=== PATIENT | male | born 1970 | race Hispanic/Latino ===

== ENCOUNTER 2017-08-01 11:16 | Emergency (ER) | payer BC ==
--- NOTE | 2017-08-01 11:35 | ED PDOC ---
HPI: Abdomen Time Seen by Provider: 08/01/17 11:26 Chief Complaint (Nursing): Abdominal Pain History Per: Patient Onset/Duration Of Symptoms: Days (3) Current Symptoms Are (Timing): Still Present Severity: Mild Pain Scale Rating Of: 3 Location Of Pain/Discomfort: LUQ Quality Of Discomfort: Unable To Describe Associated Symptoms: Constipation. denies: Fever, Nausea, Vomiting Additional Complaint(s): Left sided abd pain assoc with constipation x 3 days. Passing gas. denies vomiting or fever. Past Medical History Vital Signs: Last Vital Signs Temp Pulse Resp BP Pulse Ox 98 08/01/17 13:43 - Medical History PMH: Diverticulitis - Family History Family History: States: Unknown Family Hx - Immunization History Hx Tetanus Toxoid Vaccination: (not up to date) - Home Medications Home Medications: Ambulatory Orders Medication Instructions Recorded Ibuprofen [Motrin] 600 mg PO Q6H PRN #15 tab 12/14/14 Ciprofloxacin HCl [Cipro] 500 mg PO BID #20 tab 08/01/17 Dicyclomine [Dicyclomine HCl] 10 mg PO Q8 #10 cap 08/01/17 Metronidazole [Flagyl] 500 mg PO Q8 #30 tablet 08/01/17 - Allergies Allergies/Adverse Reactions: Allergies Allergy/AdvReac Type Severity Reaction Status Date / Time No Known Allergies Allergy Verified 12/14/14 20:26 Review of Systems ROS Statement: Except As Marked, All Systems Reviewed And Found Negative Gastrointestinal: Positive for: Abdominal Pain, Constipation Physical Exam - Reviewed Nursing Documentation Reviewed: Yes Vital Signs Reviewed: Yes - Physical Exam Appears: Positive for: Non-toxic, No Acute Distress Head Exam: Positive for: ATRAUMATIC, NORMAL INSPECTION, NORMOCEPHALIC Skin: Positive for: Normal Color, Warm, DRY Gastrointestinal/Abdominal: Positive for: Bowel Sounds, Soft, Tenderness (Mild tenderness LUQ) Extremity: Positive for: Normal ROM Neurologic/Psych: Positive for: Alert, Oriented - Laboratory Results Result Diagrams: 08/01/17 11:50 08/01/17 11:50 - ECG O2 Sat by Pulse Oximetry: 98 Medical Decision Making Medical Decision Making: Time: 13:39 CT Abdomen and Pelvis with IV Contrast FINDINGS: LOWER THORAX: Small hiatal hernia. LIVER: Liver exhibits relatively normal size measuring 17.1 cm in CC dimension. The very minor diffuse fatty hepatic infiltration. Portal and splenic veins are opacified. No obvious hepatic mass or collection. GALLBLADDER AND BILE DUCTS: Gallbladder is physiologically distended. No evidence intraluminal gallbladder calculi. PANCREAS: Pancreas is slightly atrophic and fatty replaced. No obvious pancreatic mass or collection. Small nodular density located between the pancreatic tail and spleen that could represent a small spinal. SPLEEN: The spleen is unremarkable with questionable small splenule located between the pancreatic tail and medial splenic border. ADRENALS: Nodular appearance left adrenal gland KIDNEYS AND URETERS: Kidneys demonstrate symmetric nephrograms. No evidence of nephrolithiasis or hydronephrosis. BLADDER: Urine bladder is incompletely distended which presumably accounts for thick- walled appearance. Muscular hypertrophy may contribute. Cystitis in a male patient be less likely in the absence of a pertinent clinical history however clinical correlation with urinalysis REPRODUCTIVE: Prostate gland measures approximately 4.1 cm in transverse dimension. APPENDIX: The normal-appearing appendix best seen on coronal series 601, image number [id number]. Move BOWEL: Evaluation of the bowel is limited due to the lack of oral contrast material. The stomach is incompletely distended which may in part account for thick- walled appearance. The possibility of a gastritis not excluded. Visualized loops of small bowel exhibit normal contour and caliber. No evidence acute mechanical small bowel obstruction. Diverticulosis. There is a short segment of the distal descending colon junction that exhibits moderate to fairly significant wall thickening and the infiltration/inflammatory changes within the adjacent mesenteric consistent with an acute diverticulitis. PERITONEUM: No evidence of free. Intraperitoneal air. No free or loculated fluid collections. LYMPH NODES: Unremarkable. No enlarged lymph nodes. VASCULATURE: No evidence of abdominal aortic or iliac artery aneurysm. Atherosclerotic plaque changes seen along the abdominal aorta and iliac arteries. BONES: Minor multilevel degenerative spondylosis of the lower thoracic and lumbar spine. OTHER FINDINGS: None. IMPRESSION: Findings consistent with acute diverticulitis involving a short segment of the distal descending colon junction Mild fatty hepatic infiltration. Mild nodular appearing left adrenal gland. Disposition - Clinical Impression Clinical Impression: Diverticulitis - Patient ED Disposition Is Patient to be Admitted: No Counseled Patient/Family Regarding: Studies Performed, Diagnosis, Need For Followup, Rx Given - Disposition Referrals: Baldemar Stewart MD [Staff Provider] - Disposition: Routine/Home Disposition Time: 13:52 Condition: FAIR Prescriptions: Ciprofloxacin HCl [Cipro] 500 mg PO BID #20 tab Dicyclomine [Dicyclomine HCl] 10 mg PO Q8 #10 cap Metronidazole [Flagyl] 500 mg PO Q8 #30 tablet Instructions: Diverticulitis Forms: [facility] (Romanian)
[2017-08-01 11:56] LABS: BASO # 0.1 K/uL (0.0-0.2); BASO % 0.9 % (0.0-2.0); EOS # 0.4 K/uL (0.0-0.7); EOS % 2.2 % (0.0-4.0); HEMOGLOBIN 16.9 g/dL (12.0-18.0); LYMPH # 2.8 K/uL (1.0-4.3); MEAN CORPUSCULAR HEMOGLOBIN 29.5 pg (27.0-31.0); MEAN CORPUSCULAR HGB CONC 34.3 g/dL (33.0-37.0); MEAN PLATELET VOLUME 7.6 fl (7.2-11.7); MONO # 1.6 K/uL (0.0-0.8); MONO % 10.1 % (0.0-10.0); NEUT # 10.8 K/uL (1.8-7.0); NEUT % 68.8 % (50.0-75.0); RBC 5.73 Mil/uL (4.40-5.90); RED CELL DISTRIBUTION WIDTH 13.9 % (11.5-14.5); WHITE BLOOD COUNT 15.7 K/uL (4.8-10.8)
[2017-08-01 12:06] LABS: ALB/GLOB RATIO 1.2 (1.0-2.1); ALBUMIN 4.3 g/dL (3.5-5.0); ALT/SGPT 35 U/L (21-72); AST/SGOT 24 U/L (17-59); BLOOD UREA NITROGEN 10 mg/dl (9-20); CALCIUM 9.9 mg/dL (8.4-10.2); GFR AFRICAN-AMERICAN > 60; GFR NON-AFRICAN AMERICAN > 60
[2017-08-01] MEDS ORDERED: Sodium Chloride 0.9% 100 ML ONE (12:35)
[2017-08-01] MEDS ORDERED: Iohexol 300 100 ML IJ ONE (12:35)
--- NOTE | 2017-08-01 13:41 | CT ---
PROCEDURE: CT scan of the abdomen and pelvis dated 08/01/2017. HISTORY: Abdominal pain COMPARISON: No prior study available for comparison TECHNIQUE: Contiguous helical/transaxial images of the abdomen and pelvis. Oral contrast was administered. No IV contrast given. Coronal and Sagittal reformats generated. Radiation dose: Total exam DLP = This CT exam was performed using one or more of the following dose reduction techniques: Automated exposure control, adjustment of the mA and/or kV according to patient size, and/or use of iterative reconstruction technique. FINDINGS: LOWER THORAX: Small hiatal hernia. LIVER: Liver exhibits relatively normal size measuring 17.1 cm in CC dimension. The very minor diffuse fatty hepatic infiltration. Portal and splenic veins are opacified. No obvious hepatic mass or collection. GALLBLADDER AND BILE DUCTS: Gallbladder is physiologically distended. No evidence intraluminal gallbladder calculi. PANCREAS: Pancreas is slightly atrophic and fatty replaced. No obvious pancreatic mass or collection. Small nodular density located between the pancreatic tail and spleen that could represent a small spinal. SPLEEN: The spleen is unremarkable with questionable small splenule located between the pancreatic tail and medial splenic border. ADRENALS: Nodular appearance left adrenal gland KIDNEYS AND URETERS: Kidneys demonstrate symmetric nephrograms. No evidence of nephrolithiasis or hydronephrosis. BLADDER: Urine bladder is incompletely distended which presumably accounts for thick-walled appearance. Muscular hypertrophy may contribute. Cystitis in a male patient be less likely in the absence of a pertinent clinical history however clinical correlation with urinalysis REPRODUCTIVE: Prostate gland measures approximately 4.1 cm in transverse dimension. APPENDIX: The normal-appearing appendix best seen on coronal series 601, image number [id number]. Move BOWEL: Evaluation of the bowel is limited due to the lack of oral contrast material. The stomach is incompletely distended which may in part account for thick-walled appearance. The possibility of a gastritis not excluded. Visualized loops of small bowel exhibit normal contour and caliber. No evidence acute mechanical small bowel obstruction. Diverticulosis. There is a short segment of the distal descending colon junction that exhibits moderate to fairly significant wall thickening and the infiltration/inflammatory changes within the adjacent mesenteric consistent with an acute diverticulitis. PERITONEUM: No evidence of free. Intraperitoneal air. No free or loculated fluid collections. LYMPH NODES: Unremarkable. No enlarged lymph nodes. VASCULATURE: No evidence of abdominal aortic or iliac artery aneurysm. Atherosclerotic plaque changes seen along the abdominal aorta and iliac arteries. BONES: Minor multilevel degenerative spondylosis of the lower thoracic and lumbar spine. OTHER FINDINGS: None. IMPRESSION: Findings consistent with acute diverticulitis involving a short segment of the distal descending colon junction Mild fatty hepatic infiltration. Mild nodular appearing left adrenal gland.
[2017-08-01 14:06] VITALS: BP 130/78; PULSE 78; RESP 18; TEMP 98.2; O2SAT 99
== END 2017-08-01 14:05 | disposition home or self-care (01) ==
LOC: H.ER 11:16
DX: K57.92 Diverticulitis of intestine, part unspecified, without perforation or abscess without bleeding (principal)
CPT/HCPCS: 74177; 80053; 85025; 99282; Q9967